=== PATIENT | female | born 1950 | race Asian ===

== ENCOUNTER 2025-09-06 10:40 | Inpatient (IN) | payer MEDICARE, MEDICAID ==
[~2025-09-06] VITALS: Ht 152.4 cm; Wt 58.6 kg
[~2025-09-06 10:40] MED LIST: BENA-36 PO; CARV25TA55 PO; CLON0.3T PO; GLIM4TAB42 PO; ISOS10TA2 PO; LEVO150T10 PO
--- NOTE | 2025-09-06 10:55 | ED.PDOC ---
History of present illness HPI Comments 75 y/o F, with PMHx of HTN, DM, and CHF presents to the ED for CC of hypoglycemia. EMS reports, patient is coming from home where family called d/t patient being found altered today (09/06/25). Per EMS, family relays patient's PCP recently upped her insulin dose; current dosage is unknown. Family further reports, symptoms of poor appetite x3days. Upon arrival to the ED, patient is back to baseline. Patient denies any pain at this time. No other symptoms or modifying factors are present at this time. Chief Complaint: Hypoglycemia Time Seen by MD: 10:50 Primary Care Provider: UNKNOWN History of present illness: Nurses Notes, Medications, Allergies Allergies: Coded Allergies: NO KNOWN ALLERGIES (Unverified , 12/04/14) Home Meds Reported Medications Benazepril Hcl (Benazepril Hcl) 20 Mg Tab, 1 TAB PO DAILY, #30 TAB 5 Refills 12/05/14 Glimepiride (Glimepiride) 4 Mg Tab, 1 TAB PO DAILY, #30 TAB 5 Refills 12/05/14 Clonidine Hydrochloride (Clonidine Hcl) 0.3 Mg Tab, 0.3 MG PO, TAB 12/05/14 Carvedilol (Carvedilol) 25 Mg Tab, 1 TAB PO TID, #180 TAB 1 Refill 12/05/14 Levothyroxine Sodium (Levothyroxine Sodium) 150 Mcg Tab, 1 TAB PO DAILY, #30 TAB 5 Refills 12/05/14 Isosorbide Dinitrate (Isosorbide Dinitrate) 10 Mg Tab, 10 MG PO TID, TAB 12/05/14 Information Source: Patient, Emergency Med Personnel Mode of Arrival: EMS Timing: Days Duration: Since onset Prehospital treatment: None [place]: Confusion Symptoms: Eating poorly History of: Diabetes, Insulin use Modifying factors: Nothing Associated signs and symptoms: None Past Medical History PAST MEDICAL HISTORY: CHF, DM, HTN GUN EXAMINER History: No Pertinent GUN EXAMINER History Family History Family History: Unobtainable Social History Smoker: Non-Smoker Alcohol: Denies ETOH Use Drugs: Denies Drug Use Lives In: Home Constitutional: denies: chills, diaphoresis, fatigue, fever, malaise, sweats, weakness, others EENTM: denies: blurred vision, double vision, ear bleeding, ear discharge, ear drainage, ear pain, ear ringing, eye pain, eye redness, hearing loss, mouth pain, mouth swelling, nasal discharge, nose bleeding, nose congestion, nose pain, photophobia, tearing, throat pain, throat swelling, voice changes, others Respiratory: denies: cough, hemoptysis, orthopnea, SOB at rest, shortness of breath, SOB with excertion, stridor, wheezing, others Cardiovascular: denies: chest pain, dizzy spells, diaphoresis, Dyspnea on exertion, edema, irregular heart beat, left arm pain, lightheadedness, palpitations, PND, syncope, others Gastrointestinal: reports: poor appetite; denies: abdomen distended, abdominal pain, blood streaked bowels, constipated, diarrhea, dysphagia, difficulty swallowing, hematemesis, melena, nausea, poor fluid intake, rectal bleeding, rectal pain, vomiting, others Genitourinary: denies: abnormal vagina bleeding, burning, dyspareunia, dysuria, flank pain, frequency, hematuria, incontinence, pain, , vagina discharge, urgency, others Neurological: denies: dizziness, fainting, headache, left sided numbness, left sided weakness, numbness, paresthesia, pre-existing deficit, right sided numbness, right sided weakness, seizure, speech problems, tingling, tremors, weakness, others Musculoskeletal: denies: back pain, gout, joint pain, joint swelling, muscle pain, muscle stiffness, neck pain, others Integumetry: denies: bruises, change in color, change in hair/nails, dryness, laceration, lesions, lumps, rash, wounds, others Allergic/Immunocompromised: denies: Difficulty Healing, Frequent Infections, Hives, Itching, others Hematologic/Lymphatic: denies: anemia, blood clots, easy bleeding, easy bruising, swollen glands, others Endocrine: denies: excessive hunger, excessive sweating, excessive thirst, excessive urination, flushing, intolerance to cold, intolerance to heat, unexplained weight gain, unexplained weight loss, others Psychiatric: denies: anxiety, bipolar disorder, depression, hopeless, panic disorder, schizophrenia, sleepless, suicidal, others All Other Systems: Reviewed and Negative Physical Exam General Appearance: No Apparent Distress, Normal, Other (fraile appearing) HEENT: Normal ENT Inspection, Pharynx Normal Neck: Full Range of Motion, Non-Tender, Normal, Normal Inspection Respiratory: Chest Non-Tender, Lungs Clear, No Accessory Muscle Use, No Respiratory Distress, Normal Breath Sounds Cardiovascular: No Edema, No Murmur, No Gallop, Normal Peripheral Pulses, Regular Rate/Rhythm Breast Exam: Deferred Gastrointestinal: No Organomegaly, Non Tender, No Pulsatile Mass, Normal Bowel Sounds, Soft Genitalia: Deferred Pelvic: Deferred Rectal: Deferred Extremities: No calf tenderness, Normal capillary refill, Normal inspection, Normal range of motion, Non-tender, No pedal edema Musculoskeletal : Apperance: Normal Neurologic: Alert, route relief driver II-XII nml as Tested, No Motor Deficits, Normal Affect, Normal Mood, No Sensory Deficits Cerebellar Function: Normal Reflexes: Normal Skin: Dry, Normal Color, Warm Lymphatic: No Adenopathy Was a procedure done? Was a procedure done?: No Differential Diagnosis (DM) Differential Diagnosis: Dehydration, Hypoglycemia X-Ray, Labs, Meds, VS Vital Signs Date Time Temp Pulse Resp B/P (MAP) Pulse Ox O2 Delivery O2 Flow Rate FiO2 09/06/25 10:50 98.6 88 20 172/95 97 98.6 Lab Test 09/06/25 11:36 Range/Units White Blood Count 7.8 4.4-10.8 10^3/uL Red Blood Count 5.02 4.0-5.20 10^6/uL Hemoglobin 14.8 12.2-16.2 g/dL Hematocrit 44.7 36.0-46.0 % Mean Corpuscular Volume 89.2 80.0-100.0 fL Mean Corpuscular Hemoglobin 29.6 28.0-32.0 pg Mean Corpuscular Hemoglobin Concent 33.2 32.0-36.0 g/dL Red Cell Distribution Width 16.1 H 11.8-14.3 % Platelet Count 268 140-450 10^3/uL Mean Platelet Volume 8.1 6.9-10.8 fL Neutrophils (%) (Auto) 82.8 H 37.0-80.0 % Lymphocytes (%) (Auto) 14.2 10.0-50.0 % Monocytes (%) (Auto) 2.4 0.0-12.0 % Eosinophils (%) (Auto) 0.2 0.0-7.0 % Basophils (%) (Auto) 0.4 0.0-2.0 % Neutrophils # (Auto) 6.5 1.6-8.6 10 ^3/uL Lymphocytes # (Auto) 1.1 0.4-5.4 10 ^3/uL Monocytes # (Auto) 0.2 0-1.3 10 ^3/uL Eosinophils # (Auto) 0 0-0.8 10 ^3/uL Basophils # (Auto) 0 0-0.2 10 ^3/uL Nucleated Red Blood Cells 0.1 % Sodium Level 138 136-145 mmol/L Potassium Level 3.6 3.5-5.1 mmol/L Chloride Level 101 98-107 mmol/L Carbon Dioxide Level 23 20-31 mmol/L Anion Gap 14 5-15 Blood Urea Nitrogen 31 H 9-23 mg/dL Creatinine 1.34 H 0.550-1.02 mg/dL Glomerular Filtration Rate Calc 41 >90 mL/min BUN/Creatinine Ratio 23.1 H 10.0-20.0 Serum Glucose 136 H 74-106 mg/dL Calcium Level 9.1 8.7-10.4 mg/dL Total Bilirubin 0.9 0.2-1.0 mg/dL Aspartate Amino Transferase (AST) 49 H 13-40 U/L Alanine Aminotransferase (ALT) 24 7-40 U/L Alkaline Phosphatase 79 46-116 U/L Ammonia < 10 L 11-32 umol/L Total Protein 8.0 5.7-8.2 g/dL Albumin 4.5 3.2-4.8 g/dL [place] [address] Ph: [phone] DIAGNOSTIC IMAGING Diagnostic Imaging Report : [id number] Signed PATIENT: KATIANA CHOPRA ACCT: [id number] UNIT: [id number] : 1950 LOC: ER ROOM / BED: / AGE / SEX: 75 / F ADM STATUS: REG ER SERVICE 1050 ORDERING PHYSICIAN: LILIAN ESCOTO PROCEDURE(s): CXR1 - CHEST XRAY 1 VIEW REASON: sob ORDER NUMBER(s): [id number], ACCESSION NUMBER(s): [id number] CLINICAL HISTORY: sob TECHNIQUE: Single view of the chest was obtained. COMPARISON: None FINDINGS: The heart size and pulmonary vasculature are normal. There is mild bilateral lower lung linear atelectasis and/or scar. There are atherosclerotic calcifications of the thoracic aorta. IMPRESSION: NO ACUTE CARDIOPULMONARY PROCESS. ATED BY: ADRIANA TIRADO MD DICTATED DATE/TIME: 09/06/254 SIGNED BY: ADRIANA TIRADO MD SIGNED DATE/TIME: 09/06/251213 CC: [place] [id number] Ph: [phone] DIAGNOSTIC IMAGING Diagnostic Imaging Report : [id number] Signed PATIENT: KATIANA CHOPRA ACCT: [id number] UNIT: [id number] : 1950 LOC: ER ROOM / BED: / AGE / SEX: 75 / F ADM STATUS: REG ER SERVICE 1050 ORDERING PHYSICIAN: LILIAN ESCOTO PROCEDURE(s): HWOCT - HEAD WITHOUT CONTRAST REASON: aloc ORDER NUMBER(s): [id number], ACCESSION NUMBER(s): [id number] CLINICAL HISTORY: aloc TECHNIQUE: Helical scanning was performed of the head from the skull base to the vertex. Multiplanar reconstructions were performed. This exam was performed according to our departmental dose optimization program. Up-to-date CT equipment and radiation dose reduction techniques are utilized as appropriate. CTDI 49 DLP 790 COMPARISON: None FINDINGS: There is no evidence for acute intracranial hemorrhage, acute ischemic changes, mass, mass effect, or extra-axial fluid collection. There is no hydrocephalus or midline shift. There is no effacement of the cerebral sulci and basal subarachnoid cisterns. The spangler-white matter differentiation is well maintained. There is mild brain volume loss and chronic small vessel ischemic change. There has been right cataract extraction. The imaged paranasal sinuses demonstrate minimal right ethmoid air cell mucosal thickening. IMPRESSION: NO ACUTE INTRACRANIAL ABNORMALITY SEEN. ATED BY: ADRIANA TIRADO MD DICTATED DATE/TIME: 09/06/252 SIGNED BY: ADRIANA TIRADO MD SIGNED DATE/TIME: 11/20/25 1212 CC: X-Ray, Labs, Meds, VS Comment Patient will be admitted for further evaluation Concerns that patient's medication regimen may be inappropriate for her It appears that she had hypoglycemic event due to taking too much insulin and not eating Patient will benefit from diabetic education and possible endocrine consult Patient A&O x4 via electronic publisher service Hemodynamically stable Time of 1ST Reevaluation: 11:20 Reevaluation 1ST: Unchanged Patient Education/Counseling: Diagnosis, Treatment, Need For Follow Up Family Education/Counseling: No Family Present SEPSIS Sepsis Screen Physician Orders Urinalysis (09/06/25 10:50) Chest Xray 1 View (09/06/25 10:50) Head Without Contrast (09/06/25 10:50) Vital Signs Date Time Temp Pulse Resp B/P (MAP) Pulse Ox O2 Delivery O2 Flow Rate FiO2 09/06/25 10:50 98.6 88 20 172/95 97 98.6 Laboratory Tests Test 09/06/25 11:36 White Blood Count 7.8 10^3/uL (4.4-10.8) Departure 1 Departure Time of Disposition: 14:46 Impression: Primary Impression: Metabolic encephalopathy Additional Impressions: Hypoglycemia Insulin adverse reaction Qualified Codes: T38.3X5A - Adverse effect of insulin and oral hypoglycemic [antidiabetic] drugs, initial encounter Disposition: ADMITTED INPATIENT Condition: Stable Critical Care Note Critical Care Time?: No Stability Stability form required: No Heart Score Heart Score: Heart Score Response (Comments) Value History N/A 0 EKG N/A 0 Age N/A 0 Risk Factors N/A 0 Troponin N/A 0 Total 0 I personally scribed for ADRIAN*,CHRISTOPHER E MUFFLER MECHANIC (DVRUICH) on 09/06/25 at 10:55. Electronically submitted by Debbi Yeung (Convrrt). I personally scribed for ADRIAN*,CHRISTOPHER E MUFFLER MECHANIC (DVRUICH) on 09/06/25 at 12:19. Electronically submitted by Debbi Yeung (Convrrt). I personally scribed for ADRIAN*,CHRISTOPHER E MUFFLER MECHANIC (DVRUICH) on 09/06/25 at 12:20. Electronically submitted by Debbi Yeung (Convrrt). ADRIAN*,CHRISTOPHER E MUFFLER MECHANIC Sep 06, 2025 10:55
[2025-09-06 12:07] LABS: Hematocrit 44.7 % (36.0-46.0); Hemoglobin 14.8 g/dL (12.2-16.2); Mean Corpuscular Hemoglobin 29.6 pg (28.0-32.0); Mean Corpuscular Volume 89.2 fL (80.0-100.0); Nucleated Red Blood Cells % 0.1 %
--- NOTE | 2025-09-06 12:14 | DVH ---
CLINICAL HISTORY: aloc TECHNIQUE: Helical scanning was performed of the head from the skull base to the vertex. Multiplanar reconstructions were performed. This exam was performed according to our departmental dose optimization program. Up-to-date CT equipment and radiation dose reduction techniques are utilized as appropriate. CTDI 49 DLP 790 COMPARISON: None FINDINGS: There is no evidence for acute intracranial hemorrhage, acute ischemic changes, mass, mass effect, or extra-axial fluid collection. There is no hydrocephalus or midline shift. There is no effacement of the cerebral sulci and basal subarachnoid cisterns. The spangler-white matter differentiation is well maintained. There is mild brain volume loss and chronic small vessel ischemic change. There has been right cataract extraction. The imaged paranasal sinuses demonstrate minimal right ethmoid air cell mucosal thickening. IMPRESSION: NO ACUTE INTRACRANIAL ABNORMALITY SEEN.
--- NOTE | 2025-09-06 12:17 | DVH ---
CLINICAL HISTORY: sob TECHNIQUE: Single view of the chest was obtained. COMPARISON: None FINDINGS: The heart size and pulmonary vasculature are normal. There is mild bilateral lower lung linear atelectasis and/or scar. There are atherosclerotic calcifications of the thoracic aorta. IMPRESSION: NO ACUTE CARDIOPULMONARY PROCESS.
[2025-09-06 12:52] LABS: Alanine Aminotransferase 24 U/L (7-40); Albumin 4.5 g/dL (3.2-4.8); Alkaline Phosphatase 79 U/L (46-116); Anion Gap 14 (5-15); BUN/Creatinine Ratio 23.1 (10.0-20.0); Calcium 9.1 mg/dL (8.7-10.4); Carbon Dioxide 23 mmol/L (20-31); Chloride 101 mmol/L (98-107); Potassium 3.6 mmol/L (3.5-5.1); Sodium 138 mmol/L (136-145); Total Protein 8.0 g/dL (5.7-8.2)
[2025-09-06 12:53] LABS: Bilirubin, Total 0.9 mg/dL (0.2-1.0)
[2025-09-06 12:59] LABS: Blood Urea Nitrogen 31 mg/dL (9-23); Glucose 136 mg/dL (74-106)
[2025-09-06] MEDS ORDERED: ALBUTEROL SULF 2.5 MG/0.5ML(0.5%) NEB SOLN NEB PRN (15:30)
[2025-09-06] MEDS ORDERED: ONDANSETRON HCL 4 MG/2 ML VIAL IV PRN (15:30)
[2025-09-06] MEDS ORDERED: IPRATROPIUM BROM 0.5 MG/2.5ML INH SOL NEB PRN (15:30)
[2025-09-06] MEDS ORDERED: ACETAMINOPHEN 325 MG TAB PO PRN (15:30)
[2025-09-06] MEDS ORDERED: ASPI-325 PO (15:35)
[2025-09-06] MEDS ORDERED: ISOS20TA5 PO (15:35)
[2025-09-06] MEDS: DEXTROSE 50% SYRINGE 50 ML IV ONE (15:57)
[2025-09-06] MEDS ORDERED: DEXTROSE (50%) 50ML SYRG IV ONE (16:00)
--- NOTE | 2025-09-06 16:05 | DVHHP2 ---
History of Present Illness Reason for Visit: Hypoglycemia History of Present Illness Vahe Alston is a 75-year-old female with past medical history of asthma, diabetes, hypertension, and CHF presents to the ED with hypoglycemia and altered mental status being found by family. Patient's daughter reports that her mom had an aortic dissection repair 20 years ago, she thinks that it was done at [facility] versus [facility], she is unsure. Per EMS reports family reports that her primary care physician increased her insulin dose but unsure of what the doses. Family also reports that she has been having poor appetite for the last 3 days. Called next of kin Ursula daughter and reports that her dad stated that she has not been able to eat for the last 2-3 days, has been lethargic and when she sleeps her face has been swelling up with change in color to redness, and once she wakes up in the morning swelling has gone down as well as back to her normal color in the morning. Daughter reports that she has not been really talking as much as she typically does and has been sleeping more so in the last couple of days. Patient's daughter reports that the father called her in the morning and states that he has been sleeping more today and was concerned which prompted her to call EMS for assistance. She reports that her mom was sleeping in bed this morning. Daughter also reports that the insulin dose change occurred in June of 2025. Reports that patient last saw PCP in June 2025. Per family the dad lives with the mom. Reports that she does not use drugs, tobacco, or drinks alcohol. Trying also reports that her mom is compliant with her medications. Cardiovascular: CHF, HTN Pulmonary: Asthma Endocrine: Diabetes Past Surgical History: Other (Aortic dissection repair) Family History: None Smoke: No ALCOHOL: none Drugs: None Lives: with Family Domestic Violence: Neg Review of Systems Constitutional: Yes: Other (Altered mental status) Allergies: Coded Allergies: NO KNOWN ALLERGIES (Unverified , 12/04/14) Exam Vital Signs Vital Signs Date Time Temp Pulse Resp B/P (MAP) Pulse Ox O2 Delivery O2 Flow Rate FiO2 09/06/25 10:50 98.6 88 20 172/95 97 98.6 General Appearance: Alert, Cooperative, No acute distress HEENT: Atraumatic Respiratory: Clear to auscultation, Normal air movement Cardiovascular: Regular rate, Normal S1, Normal S2 Abdominal: Normal bowel sounds, Soft Extremities: No cyanosis Neuro: Sensation intact Psych/Mental Status: Mood NL Labs/Xrays Labs Test 09/06/25 11:36 Range/Units White Blood Count 7.8 4.4-10.8 10^3/uL Red Blood Count 5.02 4.0-5.20 10^6/uL Hemoglobin 14.8 12.2-16.2 g/dL Hematocrit 44.7 36.0-46.0 % Mean Corpuscular Volume 89.2 80.0-100.0 fL Mean Corpuscular Hemoglobin 29.6 28.0-32.0 pg Mean Corpuscular Hemoglobin Concent 33.2 32.0-36.0 g/dL Red Cell Distribution Width 16.1 H 11.8-14.3 % Platelet Count 268 140-450 10^3/uL Mean Platelet Volume 8.1 6.9-10.8 fL Neutrophils (%) (Auto) 82.8 H 37.0-80.0 % Lymphocytes (%) (Auto) 14.2 10.0-50.0 % Monocytes (%) (Auto) 2.4 0.0-12.0 % Eosinophils (%) (Auto) 0.2 0.0-7.0 % Basophils (%) (Auto) 0.4 0.0-2.0 % Neutrophils # (Auto) 6.5 1.6-8.6 10 ^3/uL Lymphocytes # (Auto) 1.1 0.4-5.4 10 ^3/uL Monocytes # (Auto) 0.2 0-1.3 10 ^3/uL Eosinophils # (Auto) 0 0-0.8 10 ^3/uL Basophils # (Auto) 0 0-0.2 10 ^3/uL Nucleated Red Blood Cells 0.1 % Sodium Level 138 136-145 mmol/L Potassium Level 3.6 3.5-5.1 mmol/L Chloride Level 101 98-107 mmol/L Carbon Dioxide Level 23 20-31 mmol/L Anion Gap 14 5-15 Blood Urea Nitrogen 31 H 9-23 mg/dL Creatinine 1.34 H 0.550-1.02 mg/dL Glomerular Filtration Rate Calc 41 >90 mL/min BUN/Creatinine Ratio 23.1 H 10.0-20.0 Serum Glucose 136 H 74-106 mg/dL Calcium Level 9.1 8.7-10.4 mg/dL Total Bilirubin 0.9 0.2-1.0 mg/dL Aspartate Amino Transferase (AST) 49 H 13-40 U/L Alanine Aminotransferase (ALT) 24 7-40 U/L Alkaline Phosphatase 79 46-116 U/L Ammonia < 10 L 11-32 umol/L Total Protein 8.0 5.7-8.2 g/dL Albumin 4.5 3.2-4.8 g/dL CLINICAL HISTORY: aloc TECHNIQUE: Helical scanning was performed of the head from the skull base to the vertex. Multiplanar reconstructions were performed. This exam was performed according to our departmental dose optimization program. Up-to-date CT equipment and radiation dose reduction techniques are utilized as appropriate. CTDI 49 DLP 790 COMPARISON: None FINDINGS: There is no evidence for acute intracranial hemorrhage, acute ischemic changes, mass, mass effect, or extra-axial fluid collection. There is no hydrocephalus or midline shift. There is no effacement of the cerebral sulci and basal subarachnoid cisterns. The spangler-white matter differentiation is well maintained. There is mild brain volume loss and chronic small vessel ischemic change. There has been right cataract extraction. The imaged paranasal sinuses demonstrate minimal right ethmoid air cell mucosal thickening. IMPRESSION: NO ACUTE INTRACRANIAL ABNORMALITY SEEN. CLINICAL HISTORY: sob TECHNIQUE: Single view of the chest was obtained. COMPARISON: None FINDINGS: The heart size and pulmonary vasculature are normal. There is mild bilateral lower lung linear atelectasis and/or scar. There are atherosclerotic calcifications of the thoracic aorta. IMPRESSION: NO ACUTE CARDIOPULMONARY PROCESS. SEPSIS Sepsis Screen Date sepsis recognized/suspect: Sep 06, 2025 Time Sepsis recognized/suspect: 1052 Recent Procedure: No On Antibiotic Therapy: No Respiratory Rate >20: No Heart Rate >90: No Temp<36 C (96.8 F) or >38.3 C: No SBP <90 or MAP <65 mmHG: No New Acute Mental Status Change: No Is the patient on CPAP, BIPAP,: No Physician Orders Urinalysis (09/06/25 10:50) Chest Xray 1 View (09/06/25 10:50) Head Without Contrast (09/06/25 10:50) Vital Signs Date Time Temp Pulse Resp B/P (MAP) Pulse Ox O2 Delivery O2 Flow Rate FiO2 09/06/25 10:50 98.6 88 20 172/95 97 98.6 Laboratory Tests Test 09/06/25 11:36 White Blood Count 7.8 10^3/uL (4.4-10.8) Assessment/Plan Assessment/Plan Assessment Severe hypoglycemia causing acute encephalopathy History of hypertension History of diabetes History of CHF History of asthma History of aortic dissection Plan Admit to med surge Hemoglobin A1c ISS and Accu-Cheks Strict I&Os Daily weights BP management Duo nebs TSH Free T4 IV fluids Diet Home medications reconciled DVT prophylaxis-SCDs PUD prophylaxis-not indicated history of GERD or GI bleed Discussed plan of care with patient and nurse Dietary consult [id number] Preventive counseling healthy eating habits, physical activity, and regular checkups Plan discussed with: Daughter Date of Service: Sep 06, 2025 Billing Provider: SKIP BAUTISTA Common Visit Codes: [id number] INP/OBS CARE (HIGH) Secondary Visit Codes: [id number] COUNSELING IND SKIP BAUTISTA Sep 06, 2025 16:05
[2025-09-06 16:14] VITALS: BP 172/95; PULSE 71; RESP 19; TEMP 98.6; O2SAT 97
[2025-09-06] MEDS ORDERED: SODIUM CHLORIDE 0.9% 1,000 ML IV SCH (16:15)
[2025-09-06] MEDS: DEXTROSE (50%) 50ML SYRG IV ONE (16:19)
[2025-09-06 16:30] VITALS: PULSE 75; RESP 15; O2SAT 97
[2025-09-06] MEDS: D5W/SOD CHLO 0.9% 1,000 ML IV SCH (16:45)
[2025-09-06] MEDS: ISOSORBIDE DINITRATE 10 MG TAB PO SCH (18:09)
[2025-09-06 18:33] VITALS: O2SAT 95
[2025-09-06 19:20] VITALS: PULSE 86; RESP 19; O2SAT 97
[2025-09-06 19:30] LABS: Urine Protein, UAD TRACE (Negative)
[2025-09-06 19:48] LABS: Amphetamine Screen, Urine Neg (NEGATIVE); Barbiturate Scree,Urine Neg (NEGATIVE); Benzodiazephine Screen, Urine Neg (NEGATIVE); Cannabinoid Screen, Urine Neg (NEGATIVE); Cocaine Screen, Urine Neg (NEGATIVE); Opiate Scree,Urine Neg (NEGATIVE); Phencyclidine Screen, Urine Neg (NEGATIVE)
[2025-09-06 21:30] VITALS: BP 149/85; PULSE 73; RESP 17; TEMP 97.9; O2SAT 98
[2025-09-06] MEDS: CARVEDILOL 12.5 MG TAB PO SCH (22:00)
[2025-09-06] MEDS ORDERED: PATIENTS OWN MEDICATION (Carvedilol 1 TAB) PO SCH (22:00)
[2025-09-06 22:44] VITALS: PULSE 75; RESP 16; O2SAT 98
[2025-09-07] VITALS (11 sets, daily range): BP systolic 91–139; BP diastolic 51–96; PULSE 55–66; RESP 16–18; TEMP 97.2–98.1; O2SAT 96–98
[2025-09-07] MEDS: LEVOTHYROXINE SODIUM 50 MCG TAB PO SCH (05:34)
[2025-09-07 06:52] LABS: Hematocrit 38.6 % (36.0-46.0); Hemoglobin 13.3 g/dL (12.2-16.2); Mean Corpuscular Hemoglobin 30.1 pg (28.0-32.0); Mean Corpuscular Volume 87.5 fL (80.0-100.0); Nucleated Red Blood Cells % 0.0 %
[2025-09-07 07:11] LABS: Alanine Aminotransferase 18 U/L (7-40); Albumin 3.8 g/dL (3.2-4.8); Alkaline Phosphatase 63 U/L (46-116); Anion Gap 16 (5-15); BUN/Creatinine Ratio 13.8 (10.0-20.0); Blood Urea Nitrogen 16 mg/dL (9-23); Sodium 142 mmol/L (136-145); Total Protein 7.1 g/dL (5.7-8.2)
[2025-09-07 07:12] LABS: Bilirubin, Total 0.8 mg/dL (0.2-1.0)
[2025-09-07 07:18] LABS: Calcium 8.4 mg/dL (8.7-10.4); Carbon Dioxide 19 mmol/L (20-31); Chloride 107 mmol/L (98-107); Glucose 184 mg/dL (74-106); Potassium 3.2 mmol/L (3.5-5.1)
[2025-09-07] MEDS: BENAZEPRIL HCL 10 MG TAB PO SCH (08:58)
[2025-09-07] MEDS: ASPirin-EC 81 mg tab PO SCH (08:59)
[2025-09-07] MEDS ORDERED: PATIENTS OWN MEDICATION (Benazepril Hcl 1 TAB) PO SCH (10:00)
[2025-09-07] MEDS ORDERED: PATIENTS OWN MEDICATION (Levothyroxine Sodium 1 TAB) PO SCH (10:00)
--- NOTE | 2025-09-07 10:47 | DVHPN2 ---
Reviewed: Care Plan, H&P, Labs, Medications, Previous Orders, Radiology Changes from previous H/P or p: No Changes Objective Vitals Vital Signs Date Time Temp Pulse Resp B/P (MAP) Pulse Ox O2 Delivery O2 Flow Rate FiO2 09/07/25 09:04 98.1 60 18 139/96 (110) 98 98.1 09/07/25 07:32 Room Air 0.0 09/07/25 07:32 21 Intake/Output Intake and Output 09/07/25 07:00 Intake Total 600 ml Balance 600 ml Intake Oral 300 ml IV Total 300 ml # Voids 1 Medications Current Medications Medications Dose Ordered Sig/Arron Route Start Time Stop Time Status Last Admin Dose Admin Albuterol 2.5 mg Q4HPRN PRN NEB 09/06/25 15:30 Ipratropium [place] 0.5 mg Q4HPRN PRN NEB 09/06/25 15:30 Ondansetron HCl 4 mg Q4HP PRN IV 09/06/25 15:30 Acetaminophen 650 mg Q6HP PRN PO 09/06/25 15:30 Patient Own Medication 1 tab DAILY PO 09/07/25 10:00 UNV Patient Own Medication 1 tab TID PO 09/06/25 22:00 UNV Patient Own Medication 1 tab DAILY PO 09/07/25 10:00 UNV Isosorbide Dinitrate 20 mg TID@06,12,18 PO 09/06/25 18:00 09/07/25 05:38 20 MG Dextrose/Sodium Chloride 1,000 ml @ 75 mls/hr [id number] IV 09/06/25 16:15 09/07/25 04:57 75 MLS/HR Sodium Chloride 1,000 ml @ 100 mls/hr Q10H IV 09/06/25 16:15 UNV Aspirin 81 mg DAILY PO 09/07/25 10:00 09/07/25 08:59 81 MG Benazepril HCl 20 mg DAILY PO 09/07/25 10:00 09/07/25 08:58 20 MG Carvedilol 25 mg BID PO 09/06/25 22:00 09/07/25 08:59 25 MG Levothyroxine Sodium 150 mcg QAM@0600 PO 09/07/25 06:00 09/07/25 05:34 150 MCG Laboratory Results Laboratory Tests 09/07/25 06:15 Chemistry Test 09/06/25 11:36 09/07/25 06:15 Albumin 4.5 g/dL (3.2-4.8) 3.8 g/dL (3.2-4.8) Calcium Level 9.1 mg/dL (8.7-10.4) 8.4 mg/dL (8.7-10.4) L Total Protein 8.0 g/dL (5.7-8.2) 7.1 g/dL (5.7-8.2) LFT Test 09/06/25 11:36 09/07/25 06:15 Alanine Aminotransferase (ALT) 24 U/L (7-40) 18 U/L (7-40) Alkaline Phosphatase 79 U/L (46-116) 63 U/L (46-116) Aspartate Amino Transferase (AST) 49 U/L (13-40) H 42 U/L (13-40) H Total Bilirubin 0.9 mg/dL (0.2-1.0) 0.8 mg/dL (0.2-1.0) HgA1c, TSH Test 09/06/25 11:36 Thyroid Stimulating Hormone (TSH) 14.19 uIU/mL (0.55-4.78) H Urinalysis Test 09/06/25 19:17 Urine Color Yellow (Yellow) Urine Clarity Turbid (Clear) H Urine pH 5.5 (5.0-9.0) Urine Specific [place] 1.021 (1.001-1.035) Urine Protein Trace (Negative) H Urine Ketones Negative (Negative) Urine Blood Negative /uL (Negative) Urine Nitrite Negative (Negative) Urine Bilirubin Negative (Negative) Urine Urobilinogen Normal mg/dL (Negative) Urine Leukocyte Esterase 2+ /uL (Negative) Urine RBC 1 /hpf (0 - 4) Urine Microscopic WBC 6 /HPF (0-5) H Urine Squamous Epithelial Cells Few /hpf (<5) Urine Bacteria Many /hpf (None Seen) H Urine Mucus Few (None Seen) Urine Glucose 3+ mg/dL (Normal) H Labs and/or images reviewed: Labs reviewed by me, Image(s) reviewed by me Assessment/Plan Assessment/Plan Severe hypoglycemia blood sugar 30 in the field secondary to excessive insulin use: Diabetic education Sepsis Secondary to urinary tract infection: Blood cultures urine cultures Rocephin Hypertension coronary benazepril Coreg Severe hypothyroidism TSH 14.19, continue home medications Synthroid 150 mcg per day, add Synthroid 100 mcg IV daily Diabetes: Insulin sliding scale History of congestive heart failure Asthma exacerbation: Albuterol Atrovent History of surgery for aortic dissection 20 years ago Severe malnutrition Time Spent 70 minutes Advanced care planning time 20 minutes Patient is full code CT head negative Chest x-ray negative Deana test pending Rapid flu test pending Plan discussed with: Patient My Orders Orders - MADINA DIAS MD Procedure Category Date Status Time Urine Bacterial KASHIF 09/07/25 Logged Culture 10:34 Blood Culture KASHIF 09/07/25 Logged 10:34 Rapid Influenza A&B LAB 09/07/25 Transmitted 10:35 Covid19 Antigen [facility]ge LAB 09/07/25 Transmitted Ceftriaxone Ivpb PHA 09/08/25 Transmitted Rocephin 09:00 Ceftriaxone Ivpb PHA 09/07/25 Transmitted Rocephin 10:45 Date of Service: Sep 07, 2025 Billing Provider: MADINA DIAS MD Common Visit Codes: [id number] CARE 30-74 MIN MADINA DIAS MD Sep 07, 2025 10:47
[2025-09-07] MEDS ORDERED: DEXTROSE (50%) 50ML SYRG IV PRN (11:00)
[2025-09-07] MEDS: ACCU-CHEK COMFORT CURVE STRIP VI SCH (11:30)
[2025-09-07] MEDS: InsuLIN REG 1unit/0.01ml Soln (100units/ml) SC SCH (11:30)
[2025-09-07] MEDS: LEVOTHYROXINE SODIUM 100 MCG/5 ML INJ IV ONE (14:11)
[2025-09-07 20:15] LABS: COVID19 ANTIGEN SOFIA FIA NEGATIVE (NEGATIVE)
[2025-09-07] MEDS: InsuLIN REG 1unit/0.01ml Soln (100units/ml) ONE (20:53)
[2025-09-08] VITALS (10 sets, daily range): BP systolic 118–181; BP diastolic 53–89; PULSE 58–67; RESP 15–20; TEMP 97.6–98.9; O2SAT 96–98
[2025-09-08] MEDS: LEVOTHYROXINE SODIUM 100 MCG TAB ONE (05:50)
[2025-09-08] MEDS: LEVOTHYROXINE SODIUM 50 MCG TAB ONE (05:51)
[2025-09-08] MEDS: LEVOTHYROXINE SODIUM 50 MCG TAB PO SCH (05:51)
--- NOTE | 2025-09-08 10:20 | DVHPN2 ---
Reviewed: Care Plan, H&P, Labs, Medications, Previous Orders, Radiology Changes from previous H/P or p: No Changes Objective Vitals Vital Signs Date Time Temp Pulse Resp B/P (MAP) Pulse Ox O2 Delivery O2 Flow Rate FiO2 09/08/25 09:00 98.3 63 18 118/59 (78) 96 98.3 09/08/25 06:57 Room Air* 0 21 Intake/Output Intake and Output 09/08/25 07:00 Intake Total 1225 ml Balance 1225 ml Intake Oral 1100 ml IV Total 125 ml # Voids 3 Medications Current Medications Medications Dose Ordered Sig/Arron Route Start Time Stop Time Status Last Admin Dose Admin Albuterol 2.5 mg Q4HPRN PRN NEB 09/06/25 15:30 Ipratropium [place] 0.5 mg Q4HPRN PRN NEB 09/06/25 15:30 Ondansetron HCl 4 mg Q4HP PRN IV 09/06/25 15:30 Acetaminophen 650 mg Q6HP PRN PO 09/06/25 15:30 Patient Own Medication 1 tab DAILY PO 09/07/25 10:00 UNV Patient Own Medication 1 tab TID PO 09/06/25 22:00 UNV Patient Own Medication 1 tab DAILY PO 09/07/25 10:00 UNV Isosorbide Dinitrate 20 mg TID@06,12,18 PO 09/06/25 18:00 09/08/25 05:33 20 MG Dextrose/Sodium Chloride 1,000 ml @ 75 mls/hr [id number] IV 09/06/25 16:15 09/07/25 17:02 75 MLS/HR Sodium Chloride 1,000 ml @ 100 mls/hr Q10H IV 09/06/25 16:15 UNV Aspirin 81 mg DAILY PO 09/07/25 10:00 09/07/25 08:59 81 MG Benazepril HCl 20 mg DAILY PO 09/07/25 10:00 09/07/25 08:58 20 MG Carvedilol 25 mg BID PO 09/06/25 22:00 09/07/25 08:59 25 MG Ceftriaxone Sodium 50 ml @ 100 mls/hr DAILY@09 IV 09/08/25 09:00 Diagnostic Test (Pha) 1 strip ACHS 09/07/25 11:30 09/08/25 05:52 1 STRIP Insulin Human Regular ACHS SC 09/07/25 11:30 09/07/25 21:04 3 UNITS Dextrose 50 ml UD PRN IV 09/07/25 11:00 Levothyroxine Sodium 100 mcg DAILY IV 09/08/25 10:00 Levothyroxine Sodium 150 mcg QAM@0600 PO 09/08/25 06:00 09/08/25 05:51 150 MCG Laboratory Results Laboratory Tests 09/07/25 06:15 Urinalysis Test 09/06/25 19:17 Urine Color Yellow (Yellow) Urine Clarity Turbid (Clear) H Urine pH 5.5 (5.0-9.0) Urine Specific [place] 1.021 (1.001-1.035) Urine Protein Trace (Negative) H Urine Ketones Negative (Negative) Urine Blood Negative /uL (Negative) Urine Nitrite Negative (Negative) Urine Bilirubin Negative (Negative) Urine Urobilinogen Normal mg/dL (Negative) Urine Leukocyte Esterase 2+ /uL (Negative) Urine RBC 1 /hpf (0 - 4) Urine Microscopic WBC 6 /HPF (0-5) H Urine Squamous Epithelial Cells Few /hpf (<5) Urine Bacteria Many /hpf (None Seen) H Urine Mucus Few (None Seen) Urine Glucose 3+ mg/dL (Normal) H Labs and/or images reviewed: Labs reviewed by me, Image(s) reviewed by me Assessment/Plan Assessment/Plan Severe hypoglycemia blood sugar 30 in the field secondary to excessive insulin use: Diabetic education Sepsis Secondary to urinary tract infection: Blood cultures pending urine cultures pending Rocephin Hypertension coronary benazepril Coreg Severe hypothyroidism TSH 14.19, continue home medications Synthroid 150 mcg per day, add Synthroid 100 mcg IV daily Diabetes: Insulin sliding scale History of congestive heart failure Asthma exacerbation: Albuterol Atrovent History of surgery for aortic dissection 20 years ago Severe malnutrition Time Spent 70 minutes Advanced care planning time 20 minutes Patient is full code CT head negative Chest x-ray negative Deana test negative Rapid flu test negative Plan discussed with: Patient My Orders Orders - MADINA DIAS MD Procedure Category Date Status Time Urine Bacterial KASHIF 09/07/25 Logged Culture 10:34 Blood Culture KASHIF 09/07/25 In Process 10:34 Ceftriaxone 1gm/50ml PHA 09/08/25 In Process (Rocephin) 09:00 Glucose Blood PHA 09/07/25 In Process (Accu-Chek Comfort 11:30 Insulin R (Human) PHA 09/07/25 In Process (Insulin R) 11:30 Dextrose 50% Syringe PHA 09/07/25 In Process 11:00 Levothyroxine PHA 09/08/25 In Process Injection (Synthroid 10:00 Thyroid Stimulating LAB 09/10/25 Verified Hormone 05:00 Date of Service: Sep 08, 2025 Billing Provider: MADINA DIAS MD Common Visit Codes: [id number] INP/OBS CARE(HIGH) MADINA DIAS MD Sep 08, 2025 10:20
[2025-09-08] MEDS: LEVOTHYROXINE SODIUM 100 MCG/5 ML INJ IV SCH (10:46)
[2025-09-09] VITALS (12 sets, daily range): BP systolic 122–170; BP diastolic 63–73; PULSE 51–62; RESP 15–18; TEMP 97.5–98.2; O2SAT 96–100
--- NOTE | 2025-09-09 12:03 | DVHPN2 ---
Reviewed: Care Plan, H&P, Labs, Medications, Previous Orders, Radiology Changes from previous H/P or p: No Changes Objective Vitals Vital Signs Date Time Temp Pulse Resp B/P (MAP) Pulse Ox O2 Delivery O2 Flow Rate FiO2 09/09/25 09:06 60 145/64 09/09/25 08:45 98.2 17 98 98.2 09/09/25 01:03 Room Air 0.0 09/09/25 01:03 21 Intake/Output Intake and Output 09/09/25 07:00 Intake Total 650 ml Balance 650 ml Intake Oral 600 ml IV Total 50 ml # Voids 3 # Bowel Movements 1 Medications Current Medications Medications Dose Ordered Sig/Arron Route Start Time Stop Time Status Last Admin Dose Admin Albuterol 2.5 mg Q4HPRN PRN NEB 09/06/25 15:30 Ipratropium [place] 0.5 mg Q4HPRN PRN NEB 09/06/25 15:30 Ondansetron HCl 4 mg Q4HP PRN IV 09/06/25 15:30 Acetaminophen 650 mg Q6HP PRN PO 09/06/25 15:30 Patient Own Medication 1 tab DAILY PO 09/07/25 10:00 UNV Patient Own Medication 1 tab TID PO 09/06/25 22:00 UNV Patient Own Medication 1 tab DAILY PO 09/07/25 10:00 UNV Isosorbide Dinitrate 20 mg TID@06,12,18 PO 09/06/25 18:00 09/09/25 05:31 20 MG Dextrose/Sodium Chloride 1,000 ml @ 75 mls/hr [id number] IV 09/06/25 16:15 09/09/25 10:55 75 MLS/HR Sodium Chloride 1,000 ml @ 100 mls/hr Q10H IV 09/06/25 16:15 UNV Aspirin 81 mg DAILY PO 09/07/25 10:00 09/09/25 08:00 81 MG Benazepril HCl 20 mg DAILY PO 09/07/25 10:00 09/09/25 08:05 20 MG Carvedilol 25 mg BID PO 09/06/25 22:00 09/09/25 08:06 25 MG Ceftriaxone Sodium 50 ml @ 100 mls/hr DAILY@09 IV 09/08/25 09:00 09/09/25 07:58 100 MLS/HR Diagnostic Test (Pha) 1 strip ACHS 09/07/25 11:30 09/09/25 06:24 1 STRIP Insulin Human Regular ACHS SC 09/07/25 11:30 09/09/25 06:25 2 UNITS Dextrose 50 ml UD PRN IV 09/07/25 11:00 Levothyroxine Sodium 100 mcg DAILY IV 09/08/25 10:00 09/09/25 08:03 100 MCG Levothyroxine Sodium 150 mcg QAM@0600 PO 09/08/25 06:00 09/09/25 05:30 150 MCG Laboratory Results Laboratory Tests 09/07/25 06:15 HgA1c, TSH Test 09/08/25 13:04 Hemoglobin A1c 6.8 % A1C (<5.7) H Urinalysis Test 09/06/25 19:17 Urine Color Yellow (Yellow) Urine Clarity Turbid (Clear) H Urine pH 5.5 (5.0-9.0) Urine Specific [place] 1.021 (1.001-1.035) Urine Protein Trace (Negative) H Urine Ketones Negative (Negative) Urine Blood Negative /uL (Negative) Urine Nitrite Negative (Negative) Urine Bilirubin Negative (Negative) Urine Urobilinogen Normal mg/dL (Negative) Urine Leukocyte Esterase 2+ /uL (Negative) Urine RBC 1 /hpf (0 - 4) Urine Microscopic WBC 6 /HPF (0-5) H Urine Squamous Epithelial Cells Few /hpf (<5) Urine Bacteria Many /hpf (None Seen) H Urine Mucus Few (None Seen) Urine Glucose 3+ mg/dL (Normal) H Microbiology Microbiology Date/Time Source Procedure Growth Status 09/07/25 11:04 Blood Blood Culture - Preliminary NO GROWTH AFTER 48 HOURS OF INCUBATION. Resulted Labs and/or images reviewed: Labs reviewed by me, Image(s) reviewed by me Assessment/Plan Assessment/Plan Severe hypoglycemia blood sugar 30 in the field secondary to excessive insulin use: Diabetic education, per daughter she takes Soliqua insulin 58 units per day Sepsis Secondary to urinary tract infection: Blood cultures negative, urine cultures pending , continue Rocephin Hypertension: continue benazepril Coreg Severe hypothyroidism TSH 14.19, continue home medications Synthroid 150 mcg per day, add Synthroid 100 mcg IV daily Diabetes: Insulin sliding scale History of congestive heart failure Asthma exacerbation: Albuterol Atrovent History of surgery for aortic dissection 20 years ago Severe malnutrition Time Spent 60 minutes Advanced care planning time 20 minutes Patient is full code CT head negative Chest x-ray negative Deana test negative Rapid flu test negative Spoke with Daughter Ursula White [phone] on the phone, she is a pharmacist and lives in [place], patient lives with her in the [facility], advised the patient will be benefitted to go to rehab for control of blood sugars and severe hypothyroidism and she agrees. Plan discussed with: Patient Date of Service: Sep 09, 2025 Billing Provider: MADINA DIAS MD Common Visit Codes: [id number] INP/OBS CARE([facility]) MADINA DIAS MD Sep 09, 2025 12:03
[2025-09-09] MEDS ORDERED: METOPROLOL TARTRATE 50 MG TAB PO ONE (12:15)
[2025-09-09 13:38] LABS: Alanine Aminotransferase 17 U/L (7-40); Albumin 3.5 g/dL (3.2-4.8); Alkaline Phosphatase 65 U/L (46-116); Anion Gap 15 (5-15); BUN/Creatinine Ratio 10.6 (10.0-20.0); Blood Urea Nitrogen 11 mg/dL (9-23); Carbon Dioxide 24 mmol/L (20-31); Chloride 105 mmol/L (98-107); Potassium 3.7 mmol/L (3.5-5.1); Sodium 144 mmol/L (136-145); Total Protein 6.5 g/dL (5.7-8.2)
[2025-09-09 13:39] LABS: Bilirubin, Total 0.6 mg/dL (0.2-1.0)
[2025-09-09 14:08] LABS: Calcium 8.3 mg/dL (8.7-10.4); Glucose 217 mg/dL (74-106)
[2025-09-09] MEDS ORDERED: METOPROLOL TARTRATE 50 MG TAB PO SCH (22:00)
[2025-09-10] VITALS (9 sets, daily range): BP systolic 128–176; BP diastolic 65–77; PULSE 53–63; RESP 16–18; TEMP 97.8–98.6; O2SAT 97–100
[2025-09-10 06:31] LABS: Hematocrit 33.0 % (36.0-46.0); Hemoglobin 11.7 g/dL (12.2-16.2); Mean Corpuscular Hemoglobin 30.7 pg (28.0-32.0); Mean Corpuscular Volume 86.8 fL (80.0-100.0); Nucleated Red Blood Cells % 0.1 %
--- NOTE | 2025-09-10 13:22 | DVHPN2 ---
Reviewed: Care Plan, H&P, Labs, Medications, Previous Orders, Radiology Changes from previous H/P or p: No Changes Objective Vitals Vital Signs Date Time Temp Pulse Resp B/P (MAP) Pulse Ox O2 Delivery O2 Flow Rate FiO2 09/10/25 13:04 98.5 54 16 147/73 (97) 100 98.5 09/10/25 10:28 Room Air 0.0 09/10/25 10:28 21 Intake/Output Intake and Output 09/10/25 07:00 Intake Total 1370 ml Balance 1370 ml Intake Oral 1320 ml IV Total 50 ml # Voids 5 # Bowel Movements 2 Medications Current Medications Medications Dose Ordered Sig/Arron Route Start Time Stop Time Status Last Admin Dose Admin Albuterol 2.5 mg Q4HPRN PRN NEB 09/06/25 15:30 Ipratropium [place] 0.5 mg Q4HPRN PRN NEB 09/06/25 15:30 Ondansetron HCl 4 mg Q4HP PRN IV 09/06/25 15:30 Acetaminophen 650 mg Q6HP PRN PO 09/06/25 15:30 Patient Own Medication 1 tab DAILY PO 09/07/25 10:00 UNV Patient Own Medication 1 tab TID PO 09/06/25 22:00 UNV Patient Own Medication 1 tab DAILY PO 09/07/25 10:00 UNV Isosorbide Dinitrate 20 mg TID@06,12,18 PO 09/06/25 18:00 09/10/25 12:35 20 MG Dextrose/Sodium Chloride 1,000 ml @ 75 mls/hr [id number] IV 09/06/25 16:15 09/09/25 13:47 75 MLS/HR Sodium Chloride 1,000 ml @ 100 mls/hr Q10H IV 09/06/25 16:15 UNV Aspirin 81 mg DAILY PO 09/07/25 10:00 09/10/25 09:13 81 MG Benazepril HCl 20 mg DAILY PO 09/07/25 10:00 09/10/25 09:14 20 MG Carvedilol 25 mg BID PO 09/06/25 22:00 09/10/25 09:15 25 MG Ceftriaxone Sodium 50 ml @ 100 mls/hr DAILY@09 IV 09/08/25 09:00 09/10/25 09:13 100 MLS/HR Diagnostic Test (Pha) 1 strip ACHS 09/07/25 11:30 09/10/25 11:56 1 STRIP Insulin Human Regular ACHS SC 09/07/25 11:30 09/10/25 11:56 4 UNITS Dextrose 50 ml UD PRN IV 09/07/25 11:00 Levothyroxine Sodium 100 mcg DAILY IV 09/08/25 10:00 09/10/25 09:13 100 MCG Levothyroxine Sodium 150 mcg QAM@0600 PO 09/08/25 06:00 09/10/25 05:54 150 MCG Clonidine HCl 0.2 mg Q6HP PRN PO 09/09/25 12:45 09/09/25 13:46 0.2 MG Laboratory Results Laboratory Tests 09/09/25 13:07 09/10/25 05:40 HgA1c, TSH Test 09/10/25 05:40 Thyroid Stimulating Hormone (TSH) 7.28 uIU/mL (0.55-4.78) H Urinalysis Test 09/06/25 19:17 Urine Color Yellow (Yellow) Urine Clarity Turbid (Clear) H Urine pH 5.5 (5.0-9.0) Urine Specific [place] 1.021 (1.001-1.035) Urine Protein Trace (Negative) H Urine Ketones Negative (Negative) Urine Blood Negative /uL (Negative) Urine Nitrite Negative (Negative) Urine Bilirubin Negative (Negative) Urine Urobilinogen Normal mg/dL (Negative) Urine Leukocyte Esterase 2+ /uL (Negative) Urine RBC 1 /hpf (0 - 4) Urine Microscopic WBC 6 /HPF (0-5) H Urine Squamous Epithelial Cells Few /hpf (<5) Urine Bacteria Many /hpf (None Seen) H Urine Mucus Few (None Seen) Urine Glucose 3+ mg/dL (Normal) H Microbiology Microbiology Date/Time Source Procedure Growth Status 09/08/25 11:30 Voided Urine Urine Culture - Final Complete 09/07/25 11:04 Blood Blood Culture - Preliminary NO GROWTH AFTER 72 HOURS OF INCUBATION. Resulted Labs and/or images reviewed: Labs reviewed by me, Image(s) reviewed by me Assessment/Plan Assessment/Plan Severe hypoglycemia blood sugar 30 in the field secondary to excessive insulin use: Diabetic education, per daughter she takes Soliqua insulin 58 units per day Sepsis Secondary to urinary tract infection: Blood cultures negative, urine cultures pending , continue Rocephin Hypertension: continue benazepril Coreg Severe hypothyroidism TSH 14.19, down to 7.28, DC IV Synthroid, continue p.o. Synthroid 150 mcg daily Diabetes: Insulin sliding scale History of congestive heart failure Asthma exacerbation: Albuterol Atrovent History of surgery for aortic dissection 20 years ago Severe malnutrition Time Spent 60 minutes Advanced care planning time 20 minutes Patient is full code CT head negative Chest x-ray negative Deana test negative Rapid flu test negative Spoke with Daughter Ursula White [phone] on the phone, she is a pharmacist and lives in [place], patient [facility], advised the patient will be benefitted to go to rehab for control of blood sugars and severe hypothyroidism and she agrees. Plan discussed with: Patient Date of Service: Sep 10, 2025 Billing Provider: MADINA DIAS MD Common Visit Codes: [id number] CARE 30-74 MIN MADINA DIAS MD Sep 10, 2025 13:22
--- NOTE | 2025-09-10 16:04 | CONS ---
Pharmacy Clinical Information: From Heart Failure Fallout Report on CQM Application, Vahe Alston is a 75 year old female with PMH of asthma, diabetes, hypertension, and CHF Her home medications for heart failure include rosuvastatin, spironolactone, carvedilol and benazepril Her inpatient medications include carvedilol and benazepril Per 2024 ADA guidelines, in adults with diabetes aged >75 years, it may be reasonable to initiate moderate-intensity statin therapy. Please add ro suvastatin 20mg PO daily to her current regimen if clinically appropriate [facility] Sep 10, 2025 16:04
[2025-09-11] VITALS (7 sets, daily range): BP systolic 117–136; BP diastolic 52–82; PULSE 50–55; RESP 16–17; TEMP 97.3–98.2; O2SAT 97–100
--- NOTE | 2025-09-11 13:36 | DVHPN2 ---
Reviewed: Care Plan, H&P, Labs, Medications, Previous Orders, Radiology Changes from previous H/P or p: No Changes Objective Vitals Vital Signs Date Time Temp Pulse Resp B/P (MAP) Pulse Ox O2 Delivery O2 Flow Rate FiO2 09/11/25 11:50 142/62 09/11/25 10:27 Room Air 0.0 09/11/25 10:27 21 09/11/25 10:00 50 09/11/25 08:57 98.2 16 98 98.2 Intake/Output Intake and Output 09/11/25 07:00 Intake Total 1440 ml Output Total 396 ml Balance 1044 ml Intake Oral 1390 ml IV Total 50 ml Output Urine Total 396 ml # Voids 2 # Bowel Movements 1 Medications Current Medications Medications Dose Ordered Sig/Arron Route Start Time Stop Time Status Last Admin Dose Admin Albuterol 2.5 mg Q4HPRN PRN NEB 09/06/25 15:30 Ipratropium [place] 0.5 mg Q4HPRN PRN NEB 09/06/25 15:30 Ondansetron HCl 4 mg Q4HP PRN IV 09/06/25 15:30 Acetaminophen 650 mg Q6HP PRN PO 09/06/25 15:30 Patient Own Medication 1 tab DAILY PO 09/07/25 10:00 UNV Patient Own Medication 1 tab TID PO 09/06/25 22:00 UNV Patient Own Medication 1 tab DAILY PO 09/07/25 10:00 UNV Isosorbide Dinitrate 20 mg TID@06,12,18 PO 09/06/25 18:00 09/11/25 11:50 20 MG Dextrose/Sodium Chloride 1,000 ml @ 75 mls/hr [id number] IV 09/06/25 16:15 09/11/25 06:09 75 MLS/HR Sodium Chloride 1,000 ml @ 100 mls/hr Q10H IV 09/06/25 16:15 UNV Aspirin 81 mg DAILY PO 09/07/25 10:00 09/11/25 09:20 81 MG Benazepril HCl 20 mg DAILY PO 09/07/25 10:00 09/11/25 09:21 20 MG Carvedilol 25 mg BID PO 09/06/25 22:00 09/10/25 21:57 25 MG Ceftriaxone Sodium 50 ml @ 100 mls/hr DAILY@09 IV 11/22/25 09:00 09/11/25 09:22 100 MLS/HR Diagnostic Test (Pha) 1 strip ACHS 09/07/25 11:30 09/11/25 11:57 1 STRIP Insulin Human Regular ACHS SC 09/07/25 11:30 09/11/25 11:55 3 UNITS Dextrose 50 ml UD PRN IV 09/07/25 11:00 Levothyroxine Sodium 150 mcg QAM@0600 PO 09/08/25 06:00 09/11/25 05:18 150 MCG Clonidine HCl 0.2 mg Q6HP PRN PO 09/09/25 12:45 09/09/25 13:46 0.2 MG Laboratory Results Laboratory Tests 09/09/25 13:07 09/10/25 05:40 Urinalysis Test 09/06/25 19:17 Urine Color Yellow (Yellow) Urine Clarity Turbid (Clear) H Urine pH 5.5 (5.0-9.0) Urine Specific [place] 1.021 (1.001-1.035) Urine Protein Trace (Negative) H Urine Ketones Negative (Negative) Urine Blood Negative /uL (Negative) Urine Nitrite Negative (Negative) Urine Bilirubin Negative (Negative) Urine Urobilinogen Normal mg/dL (Negative) Urine Leukocyte Esterase 2+ /uL (Negative) Urine RBC 1 /hpf (0 - 4) Urine Microscopic WBC 6 /HPF (0-5) H Urine Squamous Epithelial Cells Few /hpf (<5) Urine Bacteria Many /hpf (None Seen) H Urine Mucus Few (None Seen) Urine Glucose 3+ mg/dL (Normal) H Microbiology Microbiology Date/Time Source Procedure Growth Status 09/08/25 11:30 Voided Urine Urine Culture - Final Complete 09/07/25 11:04 Blood Blood Culture - Preliminary NO GROWTH AFTER 72 HOURS OF INCUBATION. Resulted Labs and/or images reviewed: Labs reviewed by me, Image(s) reviewed by me Assessment/Plan Assessment/Plan Severe hypoglycemia blood sugar 30 in the field secondary to excessive insulin use: Diabetic education, per daughter she takes Soliqua insulin 58 units per day Sepsis Secondary to urinary tract infection: Blood cultures negative, urine cultures pending , continue Rocephin Hypertension: continue benazepril Coreg Severe hypothyroidism TSH 14.19, down to 7.28, DC IV Synthroid, continue p.o. Synthroid 150 mcg daily Diabetes: Insulin sliding scale History of congestive heart failure Asthma exacerbation: Albuterol Atrovent History of surgery for aortic dissection 20 years ago Severe malnutrition Time Spent 60 minutes Advanced care planning time 20 minutes Patient is full code CT head negative Chest x-ray negative Deana test negative Rapid flu test negative Spoke with Daughter Ursula White [phone] on the phone, she is a pharmacist and lives in [place], patient lives with her in the [facility], advised the patient will be benefitted to go to rehab for control of blood sugars and severe hypothyroidism and she agrees. Spoke with pt through [employer], CHARLES watson present bedside, patient agrees for SNF Plan discussed with: Patient Date of Service: Sep 11, 2025 Billing Provider: MADINA DIAS MD Common Visit Codes: [id number] INP/OBS CARE([facility]) MADINA DIAS MD Sep 11, 2025 13:36
--- NOTE | 2025-09-11 13:45 | DVHDS2 ---
Discharge Summary Date of Admission Sep 06, 2025 at 15:30 Date of Discharge: Sep 11, 2025 Admitting Diagnosis Altered mental status confusion and weakness Wounds: None Labs/Diagnostic Data: Laboratory Results Test 09/11/25 11:03 09/10/25 05:40 09/09/25 13:07 09/08/25 13:04 POC Glucose 170 mg/dl (70-106) White Blood Count 5.0 10^3/uL (4.4-10.8) Red Blood Count 3.80 10^6/uL (4.0-5.20) Hemoglobin 11.7 g/dL (12.2-16.2) Hematocrit 33.0 % (36.0-46.0) Mean Corpuscular Volume 86.8 fL (80.0-100.0) Mean Corpuscular Hemoglobin 30.7 pg (28.0-32.0) Mean Corpuscular Hemoglobin Concent 35.4 g/dL (32.0-36.0) Red Cell Distribution Width 16.0 % (11.8-14.3) Platelet Count 212 10^3/uL (140-450) Mean Platelet Volume 8.0 fL (6.9-10.8) Neutrophils (%) (Auto) 54.1 % (37.0-80.0) Lymphocytes (%) (Auto) 27.8 % (10.0-50.0) Monocytes (%) (Auto) 9.0 % (0.0-12.0) Eosinophils (%) (Auto) 8.0 % (0.0-7.0) Basophils (%) (Auto) 1.1 % (0.0-2.0) Neutrophils # (Auto) 2.7 10 ^3/uL (1.6-8.6) Lymphocytes # (Auto) 1.4 10 ^3/uL (0.4-5.4) Monocytes # (Auto) 0.4 10 ^3/uL (0-1.3) Eosinophils # (Auto) 0.4 10 ^3/uL (0-0.8) Basophils # (Auto) 0.1 10 ^3/uL (0-0.2) Nucleated Red Blood Cells 0.1 % Thyroid Stimulating Hormone (TSH) 7.28 uIU/mL (0.55-4.78) Sodium Level 144 mmol/L (136-145) Potassium Level 3.7 mmol/L (3.5-5.1) Chloride Level 105 mmol/L (98-107) Carbon Dioxide Level 24 mmol/L (20-31) Anion Gap 15 (5-15) Blood Urea Nitrogen 11 mg/dL (9-23) Creatinine 1.04 mg/dL (0.550-1.02) Glomerular Filtration Rate Calc 56 mL/min (>90) BUN/Creatinine Ratio 10.6 (10.0-20.0) Serum Glucose 217 mg/dL (74-106) Calcium Level 8.3 mg/dL (8.7-10.4) Total Bilirubin 0.6 mg/dL (0.2-1.0) Aspartate Amino Transferase (AST) 26 U/L (13-40) Alanine Aminotransferase (ALT) 17 U/L (7-40) Alkaline Phosphatase 65 U/L (46-116) Total Protein 6.5 g/dL (5.7-8.2) Albumin 3.5 g/dL (3.2-4.8) Hemoglobin A1c 6.8 % A1C (<5.7) Test 09/07/25 19:40 09/06/25 19:18 09/06/25 19:17 09/06/25 11:36 Influenza Type A Antigen Negative (Negative) Influenza Type B Antigen Negative (Negative) SARS-CoV-2 Antigen (Rapid) Negative (NEGATIVE) Urine Opiates Screen Neg (NEGATIVE) Urine Fentanyl Screen Neg (NEGATIVE) Urine Barbiturates Screen Neg (NEGATIVE) Urine Phencyclidine Screen Neg (NEGATIVE) Urine Amphetamines Screen Neg (NEGATIVE) Urine Benzodiazepines Screen Neg (NEGATIVE) Urine Cocaine Screen Neg (NEGATIVE) Urine Cannabinoids Screen Neg (NEGATIVE) Urine Color Yellow (Yellow) Urine Clarity Turbid (Clear) Urine pH 5.5 (5.0-9.0) Urine Specific [place] 1.021 (1.001-1.035) Urine Protein Trace (Negative) Urine Ketones Negative (Negative) Urine Blood Negative /uL (Negative) Urine Nitrite Negative (Negative) Urine Bilirubin Negative (Negative) Urine Urobilinogen Normal mg/dL (Negative) Urine Leukocyte Esterase 2+ /uL (Negative) Urine RBC 1 /hpf (0 - 4) Urine Microscopic WBC 6 /HPF (0-5) Urine Squamous Epithelial Cells Few /hpf (<5) Urine Bacteria Many /hpf (None Seen) Urine Mucus Few (None Seen) Urine Glucose 3+ mg/dL (Normal) Ammonia < 10 umol/L (11-32) Free Thyroxine (T4) Calculated 0.73 ng/dL (0.89-1.76) Other Laboratory Tests 09/10/25 05:40 09/09/25 13:07 Brief Hx & Hospital Course: 85[facility] family for generalized weakness altered mental status and confusion blood sugars very low 30 in the field probably excessive use of insulin. Per patient's daughter patient takes soliqua 58 units per day patient also was found to have severe hypothyroidism TSH 14.19 treated with the IV and p.o. Synthroid TSH came down to 7.28 at the time of discharge and placed on Synthroid 150 mcg daily patient has a history of CHF exacerbation asthma history of surgery for aortic dissection 20 years ago patient has received physical therapy who recommended senior care facility placement secondary to patient living alone and unable to control of diabetes and thyroid disease. 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 CT head negative chest x-ray negative Deana test negative flu test negative Consults/Reason for consult None Operations or Procedures CT head Condition at Discharge: Fair Final Diagnosis/Problems List Severe hypoglycemia blood sugar 30 in the field secondary to excessive insulin use: Diabetic education, per daughter she takes Soliqua insulin 58 units per day Sepsis Secondary to urinary tract infection: Blood cultures negative, urine cultures pending , continue Rocephin Hypertension: continue benazepril Coreg Severe hypothyroidism TSH 14.19, down to 7.28, DC IV Synthroid, continue p.o. Synthroid 150 mcg daily Diabetes: Insulin sliding scale History of congestive heart failure Asthma exacerbation: Albuterol Atrovent History of surgery for aortic dissection 20 years ago Severe malnutrition Time Spent 60 minutes Advanced care planning time 20 minutes Patient is full code CT head negative Chest x-ray negative Deana test negative Rapid flu test negative Discharge Disposition: Alf Facility Discharge Instruct/Medications Diet: Cardiac 2g Na,low cholest Activity: Light activity Follow Up/Referral: Follow up with the senior living Medications: see list Scheduled Benazepril Hcl (Benazepril Hcl), 1 TAB PO DAILY, (Reported) Carvedilol (Carvedilol), 1 TAB PO TID, (Reported) Glimepiride (Glimepiride), 1 TAB PO DAILY, (Reported) Isosorbide Dinitrate (Isosorbide Dinitrate), 10 MG PO TID, (Reported) Levothyroxine Sodium (Levothyroxine Sodium), 1 TAB PO DAILY, (Reported) Miscellaneous Medications Aspirin (Aspirin Low Dose), TAB PO, (Reported) Clonidine Hydrochloride (Clonidine Hcl), 0.3 MG PO, (Reported) Isosorbide Dinitrate (Isosorbide Dinitrate), TAB PO, (Reported) 39 (Time taken for discharge summary 39 minutes) Discharge Statement: "Patient was advised to return to the ER or call 911 if any headaches, dizziness, shortness of breath, chest pain, abdominal pain, bleeding, fevers, or worsening of medical condition. Patient was counseled about treatment plan, medications, possible side effects, patientverbalized understanding. All questions were answered to the best of my ability. This discharge took greater then 30 minutes in planning, reviewing documentation, counseling the patient, and discussing with other team members." ASSESSMENT ASSESSMENT Hospital Course Improved marginally Assessment Severe hypoglycemia blood sugar 30 in the field secondary to excessive insulin use: Diabetic education, per daughter she takes Soliqua insulin 58 units per day Sepsis Secondary to urinary tract infection: Blood cultures negative, urine cultures pending , continue Rocephin Hypertension: continue benazepril Coreg Severe hypothyroidism TSH 14.19, down to 7.28, DC IV Synthroid, continue p.o. Synthroid 150 mcg daily Diabetes: Insulin sliding scale History of congestive heart failure Asthma exacerbation: Albuterol Atrovent History of surgery for aortic dissection 20 years ago Severe malnutrition Time Spent 60 minutes Advanced care planning time 20 minutes Patient is full code CT head negative Chest x-ray negative Deana test negative Rapid flu test negative Date of Service: Sep 11, 2025 Billing Provider: MADINA DIAS MD Common Visit Codes: 94783-VAN/OBS DISCH DAY >30min MADINA DIAS MD Sep 11, 2025 13:44
== END 2025-09-11 19:30 | DRG 871 ==
LOC: EDSEX 10:40 → EDBD 10:40 → EDUNIT# 10:40 → ER 10:40 → OVERFLOW 15:30 → WEST WING 21:30
PROVIDERS: ADMIT Family Medicine; ATTEND Family Medicine
DX: A41.9 Sepsis, unspecified organism (principal); E43 Unspecified severe protein-calorie malnutrition; G93.41 Metabolic encephalopathy; I50.9 Heart failure, unspecified; N39.0 Urinary tract infection, site not specified; J45.901 Unspecified asthma with (acute) exacerbation; I11.0 Hypertensive heart disease with heart failure; E11.649 Type 2 diabetes mellitus with hypoglycemia without coma; E03.9 Hypothyroidism, unspecified; Z20.822 Contact with and (suspected) exposure to COVID-19; Z68.23 Body mass index [BMI] 23.0-23.9, adult; Z79.899 Other long term (current) drug therapy
CPT/HCPCS: 36415; 70450; 71045; 80053; 80307; 81001; 82140; 82962; 83036; 84439; 84443; 85025; 87040; 87086; 87426; 87804; 97163; G0378; J1815; J3490; J7042